=== PATIENT | female | born 1950 | race Caucasian/White ===

== ENCOUNTER → 2016-04-06 | Outpatient (CLI) | payer OTHER, MEDICARE | LOC: RAD 14:00 | DX: Z12.31 Encounter for screening mammogram for malignant neoplasm of breast (principal) ==

== ENCOUNTER → 2017-04-17 | Outpatient (CLI) | payer OTHER, MEDICARE | LOC: RAD 13:40 | DX: Z12.31 Encounter for screening mammogram for malignant neoplasm of breast (principal) ==

== ENCOUNTER → 2018-05-10 | Outpatient (CLI) | payer OTHER, MEDICARE | LOC: RAD 13:19 | DX: Z12.31 Encounter for screening mammogram for malignant neoplasm of breast (principal) ==